=== PATIENT | male | born 1970 | race Caucasian/White ===

== ENCOUNTER 2023-06-29 07:02 | Day surgery (SDC) | payer MEDICAID ==
[2023-06-24 14:53] LABS: BASOPHILS % (AUTO) 0.1 % (0-1); EOSINOPHILS % (AUTO) 0.1 % (0-6); LYMPHOCYTES # (AUTO) 1.6 X10'3 (1.1-4.8); LYMPHOCYTES % (AUTO) 14.1 % (21-51); MEAN CORPUSCULAR HEMOGLOBIN 27.3 PG (27.0-31.0); MEAN CORPUSCULAR HGB CONC 32.6 g/dL (33.0-36.5); MEAN CORPUSCULAR VOLUME 83.7 FL (78-98); MEAN PLATELET VOLUME 7.9 FL (7.4-10.4); MONOCYTES % (AUTO) 8.8 % (2-12); NEUTROPHILS # (AUTO) 8.7 X10'3 (1.8-7.7); NEUTROPHILS % (AUTO) 76.9 % (42-75); PRE OP HEMATOCRIT 43.9 % (42.0-52.0); PRE OP HEMOGLOBIN 14.3 g/dL (14.0-17.9); PRE OP PLATELET COUNT 276 X10'3 (140-440); PRE OP WHITE BLOOD COUNT 11.3 10'3 (4.8-10.8); RED BLOOD COUNT 5.24 X10'6 (4.70-6.10); RED CELL DISTRIBUTION WIDTH 16.6 % (11.5-14.5)
[2023-06-24 15:14] LABS: ALBUMIN 3.5 G/DL (3.4-5.0); ALBUMIN/GLOBULIN RATIO 0.9 (1.1-1.5); ALKALINE PHOSPHATASE 89 IU/L (46-116); BLOOD UREA NITROGEN 24 MG/DL (7-18); BUN/CREATININE RATIO 28.2 (10.0-20.0); CALCIUM 8.9 MG/DL (8.5-10.1); CHLORIDE 100 MMOL/L (99-107); CREATININE 0.85 MG/DL (0.60-1.10); PRE OP ALT 33 U/L (30-65); PRE OP ANION GAP 12 (8-16); PRE OP AST 23 U/L (10-37); PRE OP BILIRUB, TOTAL 0.2 MG/DL (0.0-1.0); PRE OP POTASSIUM 4.6 MMOL/L (3.4-5.1); PRE OP SODIUM 134 MMOL/L (135-145); TOTAL CARBON DIOXIDE 22.5 MMOL/L (24-32); TOTAL PROTEIN 7.5 G/DL (6.4-8.2); eGFR > 90 ML/MIN
[2023-06-24 15:15] LABS: PRE OP GLUCOSE 350 MG/DL (70-104)
[~2023-06-29] VITALS: Ht 177.8 cm; Wt 98.1 kg
[2023-06-29] VITALS (9 sets, daily range): BP systolic 128–168; BP diastolic 72–102; PULSE 69–97; RESP 9–28; TEMP 98.1; O2SAT 92–99
[~2023-06-29 07:02] MED LIST: BREX1TAB PO; CARV20CP PO; DAPA10TA PO; DOCUMENT DATE & TIME OF BETA-BLOCKER PO ONE; DULO60CA65 PO; INSU100V11 SQ; INSU200I4 SQ; LISI5TAB22 PO; METF-900 PO; NINT150C PO; PRED20TA PO; ROSU20TA73 PO; cefazolin 2gm/D5W 100mL 100 ML IV ONE; famotidine 20mg tablet PO ONE; ringers solution, lacted 1,000 ML IV SCH
[2023-06-29] MEDS ORDERED: BUPIVAcaine/PF 5 mg/ml 10ml ONE (09:36)
[2023-06-29] MEDS ORDERED: LIDOcaine 2% (20mg/ml) 5ml vial ONE (09:36)
[2023-06-29] MEDS ORDERED: fentaNYL/PF 50MCG/1 ML 2ML syringe ONE (09:48)
[2023-06-29] MEDS ORDERED: MIDAZolam 1 MG/ML 5ML VIAL ONE (09:48)
[2023-06-29] MEDS ORDERED: ketamine 50mg/5ml syringe ONE (09:48)
[2023-06-29] MEDS ORDERED: propofol inj 20 ML IV ONE (09:52)
[2023-06-29] MEDS ORDERED: labetalol 20mg/4ml (5mg/ml) syringe IV ONE (10:20)
[2023-06-29] MEDS ORDERED: meperidine/PF 25mg/ml syringe ONE (10:23)
[2023-06-29] MEDS ORDERED: ipratropium/albuterol 3ml nebule NEB PRN (10:25)
== END 2023-06-29 11:22 | disposition home or self-care (01) ==
LOC: PAS 07:02
PROVIDERS: ATTEND Orthopaedic Surgery Hand Surgery
DX: G56.02 Carpal tunnel syndrome, left upper limb (principal); M65.342 Trigger finger, left ring finger; M65.332 Trigger finger, left middle finger; J43.9 Emphysema, unspecified; I10 Essential (primary) hypertension; E11.9 Type 2 diabetes mellitus without complications; F32.A Depression, unspecified; F41.9 Anxiety disorder, unspecified; G47.33 Obstructive sleep apnea (adult) (pediatric); G89.4 Chronic pain syndrome; M17.12 Unilateral primary osteoarthritis, left knee; Z90.49 Acquired absence of other specified parts of digestive tract; Z98.890 Other specified postprocedural states; Z79.899 Other long term (current) drug therapy; Z79.4 Long term (current) use of insulin; F10.91 Alcohol use, unspecified, in remission; F17.210 Nicotine dependence, cigarettes, uncomplicated; Z82.49 Family history of ischemic heart disease and other diseases of the circulatory system
CPT/HCPCS: 26055; 29848; 36415; 80053; 82948; 85025; 94640; A6222; J0690; J2175; J2250; J2704; J3010; J3490; J7030; J7120; Z7506; Z7512; A4215; A4615; A6449; A7000

== ENCOUNTER 2023-10-30 13:46 | Outpatient (CLI) | payer MEDICARE, MEDICAID ==
[~2023-10-30 13:46] MED LIST changes: -DOCUMENT DATE & TIME OF BETA-BLOCKER PO ONE; -cefazolin 2gm/D5W 100mL 100 ML IV ONE; -famotidine 20mg tablet PO ONE; -ringers solution, lacted 1,000 ML IV SCH
[2023-10-30 14:14] LABS: ABG BASE EXCESS -1.2 mmol/L (-2.0-2.0); ABG HCO3 22.9 mmol/L (22.0-26.0); ABG OXYGEN SATURATION 96.7 % (94-97); ABG PCO2 (T) 37.1 mmHg (35.0-48.0); ABG PH (T) 7.409 (7.340-7.440); ABG PO2 (T) 87.3 mmHg (75.0-100.0); ALLEN'S TEST POSITIVE; FHHb 3.1 % (0.0-5.0); FLOW 4 L/min; FMetHb 0.2 % (0.0-1.5); FO2Hb 91.7 % (94-97); MODE NASAL CANNULA
== END 2023-10-30 23:59 | disposition home or self-care (01) ==
LOC: RT 13:46
PROVIDERS: ATTEND Psychiatry & Neurology Neurology
DX: J84.112 Idiopathic pulmonary fibrosis (principal)
CPT/HCPCS: 36600; 82803; 85018